=== PATIENT | female | born 1990 | race Caucasian/White ===

== ENCOUNTER 2018-10-07 05:15 | Emergency (ER) | payer OTHER ==
[~2018-10-07] VITALS: Ht 160 cm; Wt 63.5 kg
[2018-10-07 05:26] VITALS: BP 108/76
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
--- NOTE | 2018-10-07 06:00 | NUR ---
[place] [employer] [place] [employer] at patients bedside
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
--- NOTE | 2018-10-07 06:43 | NUR ---
[place] [employer] Officer Diego from [facility] Department called to do get information on patient and status of patient. Officer Diego wants patient to call her after she is out of CT to do a phone interview. Patient is to call [phone] and ask for Officer Diego or the officer taking over for Officezamzam Cortez.
--- NOTE | 2018-10-07 06:50 | NUR ---
Update Patient comes to ER room #3. Patient is undressed and a hospital gown is placed on patient. Patient states that her left knee cap hurts, no abrasions or brusies noted to left knee. Patient states that her head hurts on the left side of head. Patient is very tender to the touch of left side of head and knot to left side of head is noted. Patient has scratch anderson to the right of her neck, an inch in length. Right elbow is bruised, dark in color. Right shoulder is scratched and bruise is forming. Several abrasions to middle of back and left shoulder blade. Patient complains of back pain. Patient states that she hurts all over. Patient is in stable condtion at this time.
--- NOTE | 2018-10-07 07:00 | NUR ---
CT Patient back from CT
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
--- NOTE | 2018-10-07 07:20 | NUR ---
KAMI LARIOS PT ON PHONE WITH KAMI LARIOS, OFFICER WADE FOR PHONE INTERVIEW PER REQUEST OF KAMI LARIOS.
[2018-10-07 07:52] VITALS: BP 115/50
[2018-10-07 07:59] VITALS: BP 115/50
== END 2018-10-07 07:52 | disposition home or self-care (01) ==
LOC: ER 05:15
DX: S06.0X1A Concussion with loss of consciousness of 30 minutes or less, initial encounter (principal); S20.229A Contusion of unspecified back wall of thorax, initial encounter; S80.02XA Contusion of left knee, initial encounter; S50.01XA Contusion of right elbow, initial encounter; S50.02XA Contusion of left elbow, initial encounter; T74.21XA Adult sexual abuse, confirmed, initial encounter; Y93.89 Activity, other specified; Y92.89 Other specified places as the place of occurrence of the external cause; Y99.8 Other external cause status
CPT/HCPCS: 70450; 71046; 72125; 99284; 73560-LT